=== PATIENT | female | born 1965 | race Caucasian/White ===

== ENCOUNTER → 2022-07-06 17:44 | Outpatient (BNVA) | payer BC, SELFPAY | PROVIDERS: PCP Family Medicine; Visit Provider Nurse Practitioner | DX: J02.9 Acute pharyngitis, unspecified (principal); J30.9 Allergic rhinitis, unspecified | CPT/HCPCS: 87071; 87880 ==

== ENCOUNTER 2023-02-14 11:15 | Emergency (ER) | payer BC, SELFPAY ==
[2023-02-14 11:17] VITALS: BP 142/96; PULSE 86; RESP 15; TEMP 36.9; O2SAT 100; BMI 25.2
--- NOTE | 2023-02-14 11:26 | CT_ITS ---
WS: [id number] CT HEAD NONCONTRAST HISTORY: Headache and jaw pain. Dizziness TECHNIQUE: Contiguous axial imaging performed through the brain in 2.5 mm imaging. Bone and soft tiss ue windows. Sagittal and coronal reformats reviewed. All CT scans at [facility] use at least one of these dose optimization techniques: automated exposure control; mA and/or kV adjustment per pa tient size (includes targeted exams where dose is matched to clinical indication); or iterative recon struction. DLP: 1032.09 mGy.cm COMPARISON: None available. No acute intracranial hemorrhage, midline shift or mass effect. Mild volume loss and cerebral atrophy involving the frontal lobes. No prior infarcts. No significant white matter disease. Ventricles: Normal size with no hydrocephalus. No inferior displacement of the cerebellar tonsils. Paranasal sinuses: As visualized are clear. Mastoid air cells: Well pneumatized. Calvarium and scalp: Skull is intact with no soft tissue edema or swelling. IMPRESSION: 1. No acute intracranial hemorrhage or edema. 2. Mild bilateral frontal lobe atrophy.
--- NOTE | 2023-02-14 11:26 | XR_ITS ---
WS: [id number] Exam: XR chest 1V portable [id number] Date/Time of Exam: 02/14/2023 11:27 AM Reason For Exam: cp No priors. Findings: The lungs are clear and fully expanded. Costophrenic angles are sharp. No infiltrates. Bronchovascula r relief appears normal. Cardiac silhouette is unremarkable. Bony elements are intact. IMPRESSION: Unremarkable chest radiograph.
[2023-02-14 11:38] LABS: Basophils # 0.1 10^3/uL (0.0-0.1); Basophils % 0.6 %; Eosinophils # 0.1 10^3/uL (0.0-0.8); Hematocrit 38.7 % (36-47); Lymphocytes # 2.7 10^3/uL (0.8-4.8); Lymphocytes % 32.6 %; Mean Corpuscular HGB Conc 34.6 g/dL (30-55); Mean Corpuscular Hemoglobin 31.8 pg (27-33); Mean Corpuscular Volume 91.9 fl (85-98); Monocytes % 11.8 %; Neutrophils # 4.45 10^3/uL (1.8-7.7); Neutrophils % 53.8 %; Nucleated Red Blood Cells % 0 %; Platelet Count 315 10^3/cmm (157-399); Red Blood Count 4.21 10^6/uL (3.85-5.65); Red Cell Distribution Width 12.8 % (12.1-15.1); White Blood Count 8.28 10^3/uL (3.29-11.43)
--- NOTE | 2023-02-14 11:40 | W.ED.DIZZY ---
HPI - Dizziness General: Chief Complaint: Dizziness Stated Complaint: dizziness Time Seen by Provider: 02/14/23 11:16 Source: patient and EMS Mode of arrival: EMS Limitations: no limitations History of Present Illness: HPI Narrative: 57-year-old female states that today started having some chest pain states she also had a headache and neck pain states it was a squeezing-like sensation she had some numbness to her extremities as well. States she has been having the symptoms off and on for the last months received aspirin Zofran in route states her symptoms have since resolved. She denies any fevers denies any severe headaches. Associated symptoms: Reports chest pain and headache(s); Denies chills, nausea or vomiting Associated neuro symptoms: Reports numbness in extremities Review of Systems Const: Denies: fever(s) or chills Eyes: Denies: blurry vision or eye discomfort ENMT: Denies: throat pain or dental pain Card: Reports: chest pain Resp: Denies: dyspnea GI: Denies: abdominal pain, nausea, vomiting or diarrhea Musc: Denies: neck pain or back pain Skin/Breast: Denies: rash Neuro: Reports: headache(s) and numbness in extremities Psych: Denies: depression PFSH ED PFSH: Medical History Ankylosing spondylitis She is going to follow with rheum in [place]. Asthma Benign essential HTN Glaucoma Histoplasmosis Seasonal allergies TIA (transient ischemic attack) Surgical History H/O abdominoplasty H/O shoulder surgery scope of right shoulder History of breast augmentation History of tonsillectomy Family History Mother Hypertension Rheumatoid arthritis Chronic kidney disease (CKD) COPD (chronic obstructive pulmonary disease) Father Diverticulitis Social History Smoking and tobacco/nicotine status: former use of tobacco/nicotine Second hand smoke exposure: Yes Alcohol intake: current Alcohol intake frequency: few times a week Alcohol type: beer, wine and hard liquor Substance/Drug Use: never Adopted: No Caregiver/support person: No Lives independently: Yes Household members: spouse Housing: Manufactured/Mobile home Marital status: Number of children: 2 Highest education level completed: Some College, No Degree service: Yes status: Medically Discharged/Retired branch: [employer] Assignments: [facility] Known or Potential Exposure: None Current occupational status: employed Current occupation: Adminstrative assistant mechanic Current occupational exposures/hazards: No Pets and animals: No Sexually active: Yes Do you think of yourself as: Straight/Heterosexual Current gender identity: Female Physical Exam Const: COMMON NORMALS: no acute distress, patient oriented x3 and healthy appearing HENMT: COMMON NORMALS: normocephalic and atraumatic HEAD & SCALP: normocephalic and atraumatic Eye: COMMON NORMALS: Equal, round and reactive pupils present and EOMs intact bilaterally PUPIL: Yes Equal, round and reactive pupils present Neck/C-Spine: COMMON NORMALS: full ROM and supple Chest: COMMONS NORMALS: normal inspection of the chest and normal palpation of entire chest wall Resp: COMMON NORMALS: normal respiratory effort, No retractions, No use of accessory muscles and clear to auscultation bilaterally AUSCULTATION: clear to auscultation bilaterally Cardio: COMMON NORMALS: regular rate, regular rhythm and No murmurs present (Cardio) RATE: regular rate RHYTHM: regular rhythm GI: COMMON NORMALS: Normal to inspection, nondistended, normoactive bowel sounds present, Soft to palpation, non-tender and no masses PALPATION: Yes Soft to palpation Extremity: COMMON NORMALS: normal to inspection and full ROM Neuro: COMMON NORMALS: patient oriented x3, moves all extremities and no focal motor deficits SPEECH: speech normal GAIT: Yes Normal gait present MOTOR EXAM: 5/5 motor strength present throughout Psych: COMMON NORMALS: mental status grossly normal, Normal thought process present and cooperative THOUGHT PROCESS: Normal thought process present Skin: COMMON NORMALS: no rashes or lesions noted and no wounds GENERAL SKIN EXAM: no rashes or lesions noted Course Vital Signs: Vital signs: Vital Signs Temperature 98.4 F 02/14/23 11:17 Pulse Rate 86 02/14/23 11:17 Respiratory Rate 15 02/14/23 11:17 Blood Pressure 144/77 02/14/23 13:56 Pulse Oximetry 99 02/14/23 11:57 Oxygen Delivery Me thod Room Air 02/14/23 11:17 MDM - Dizziness Medical Decision Making Patient presents here with chest pain along with some headache is been on for weeks head CT blood work here is normal troponins are normal she feels improved she is no signs of acute coronary syndrome she is stable for discharge she is to follow-up with PCP and return if worsening she understands agrees to plan. Medical Records I reviewed the patient's medical records. Lab Data I reviewed the patient's lab results. 02/14/23 11:04 02/14/23 11:04 Laboratory Results WBC 8.28 10^3/uL (3.29-11.43) 02/14/23 11:04 RBC 4.21 10^6/uL (3.85-5.65) 02/14/23 11:04 Hgb 13.40 g/dL (11.27-16.99) 02/14/23 11:04 Hct 38.7 % (36-47) 02/14/23 11:04 MCV 91.9 fl (85-98) 02/14/23 11:04 MCH 31.8 pg (27-33) 02/14/23 11:04 MCHC 34.6 g/dL (30-55) 02/14/23 11:04 RDW 12.8 % (12.1-15.1) 02/14/23 11:04 Plt Count 315 10^3/cmm (157-399) 02/14/23 11:04 MPV 10.0 fL (7.4-10.4) 02/14/23 11:04 Neut % (Auto) 53.8 % 02/14/23 11:04 Lymph % (Auto) 32.6 % 02/14/23 11:04 [place] % (Auto) 11.8 % 02/14/23 11:04 Eos % (Auto) 1.0 % 02/14/23 11:04 Baso % (Auto) 0.6 % 02/14/23 11:04 Neut # (Auto) 4.45 10^3/uL (1.8-7.7) 02/14/23 11:04 Lymph # (Auto) 2.7 10^3/uL (0.8-4.8) 02/14/23 11:04 [place] # (Auto) 1.0 10^3/uL (0.2-0.9) H 02/14/23 11:04 Eos # (Auto) 0.1 10^3/uL (0.0-0.8) 02/14/23 11:04 Baso # (Auto) 0.1 10^3/uL (0.0-0.1) 02/14/23 11:04 Nucleated RBC % (auto) 0 % 02/14/23 11:04 Nucleated RBCs # 0.0 /100WBC 02/14/23 11:04 Sodium 137 mmol/L (136-145) 02/14/23 11:04 Potassium 4.1 mmol/L (3.5-5.1) 02/14/23 11:04 Chloride 99 mmol/L (98-107) 02/14/23 11:04 Carbon Dioxide 27 mmol/L (22-29) 02/14/23 11:04 Anion Gap 15.1 (5-19) 02/14/23 11:04 BUN 14 mg/dL (6-20) 02/14/23 11:04 Creatinine 0.7 mg/dL (0.5-0.9) 02/14/23 11:04 GFR Calculation 86.9 mL/min (90-130) L 02/14/23 11:04 Glucose 86 mg/dL (65-115) 02/14/23 11:04 Calculated Osmolality 284 mOsm/kg (285-295) L 02/14/23 11:04 Calcium 10.6 mg/dL (8.5-10.5) H 02/14/23 11:04 Total Bilirubin 0.6 mg/dL (0.15-1.2) 02/14/23 11:04 AST 29 U/L (0-32) 02/14/23 11:04 ALT 14 U/L (0-33) 02/14/23 11:04 Alkaline Phosphatase 39 U/L (35-105) 02/14/23 11:04 Troponin T Baseline < 6 ng/L (0-10) 02/14/23 11:04 Troponin T 120 Minute 11.30 ng/L (0-10) H 02/14/23 13:08 Delta Troponin T 5.12850 ABS# (0-10) 02/14/23 13:08 Total Protein 7.1 g/dL (6.6-8.7) 02/14/23 11:04 Albumin 5.0 g/dL (3.5-5.2) 02/14/23 11:04 Globulin 2.1 g/dL (1.3-4.6) 02/14/23 11:04 All radiology interpretation(s) finalized by discharge EKG Data EKG 1: I personally reviewed and interpreted this EKG as follows: EKG interpretation date: 02/14/23 EKG interpretation time: 11:46 Interpretation: nsr hr [address] or t wave abnormalities qrs 105 qtc 445 EKG 2: I personally reviewed and interpreted this EKG as follows: EKG interpretation date: 02/14/23 EKG interpretation time: 13:26 Interpretation: sinus ling hr [address] or t wave abnormalities qrs 122 qtc 460 Discharge Plan Discharge Patient Disposition: Home Clinical Impression: Chest pain, Headache Condition: Stable Prescriptions: No Action brimonidine 0.1 % drops 1 drp ophthalmic (eye) DAILY albuterol sulfate 2.5 mg /3 mL (0.083 %) solution for nebulization 2.5 mg inhalation Q4H PRN (Reason: Shortness Of Breath) epinephrine 0.1 mg/0.1 mL auto-injector 0.1 ml IM ONCE PRN (Reason: hypersensitivity reaction) cetirizine [Zyrtec] 10 mg tablet 10 mg PO DAILY PRN (Reason: Allergic Symptoms) albuterol sulfate [ProAir HFA] 90 mcg/actuation HFA aerosol inhaler 2 puff inhalation Q6H PRN (Reason: shortness of breath or wheezing) Qty: 8.5 0RF hydroxychloroquine [Plaquenil] 200 mg tablet 400 mg PO DAILY biotin 10 mg Tablet 10 mg PO QAM Vitamin C 1,000 mg Tablet 1,000 mg PO QAM evening primrose oil 500 mg Capsule 500 mg PO QAM Rx Instructions: give with meal/snack azathioprine 50 mg tablet 100 mg PO DAILY Ginkoba 40 mg Tablet 40 mg PO QAM Rx Instructions: give with meal/snack diclofenac sodium 75 mg tablet,delayed release (DR/EC) 75 mg PO BID losartan-hydrochlorothiazide 50-12.5 mg tablet 1 tab PO QAM Juice Plus Liquid 1 ea PO DAILY alpha lipoic acid 50 mg Tablet 50 mg PO QPM Centrum 18-400 mg-mcg Tablet 1 tab PO QPM Vitamin D3 125 mcg (5,000 unit) Tablet 125 mcg PO QPM Krill Oil (Morton 3 and 6) 1,500-165-67.5 mg Capsule 1 cap PO QPM Cosentyx Pen 150 mg/mL Pen Injector See Rx Instructions .ROUTE .COMPLEX Rx Instructions: 150 mg subcutaneously every 4 weeks on the Tuesday potassium citrate 99 mg Capsule 99 mg PO QAM cat's claw (Uncaria tomentosa) 500 mg Capsule 500 mg PO QAM Discharge Orders: Discharge ED (Routine); Ordered 02/14/23 Ordered By: Delano Norris Referrals: Ronnie Olvera [Primary Care Provider] - 1-3 days Discharge Diet: Advance as tolerated Discharge Activity: Resume usual activity Patient Instructions: Chest Pain (ED), General Headache (ED) Stand Alone Forms: Work/School Release Print Language: Lebanese Coding Level of Care Code ED Feather Stitcher for Carrol Yun
--- NOTE | 2023-02-14 11:46 | ECG_ITS ---
[facility] Test Date: 2023-02-14 Pat Name: Milagro Meier Department: Room: Gender: Female Product Manager: : 1965 Requested By: Delano Norris Order Number: [id number] Radha MD: Jenn Tucker M.D. Measurements Intervals [place] Rate: 60 P: 48 SD: 146 QRS: 56 QRSD: 105 T: 56 QT: 445 QTc: 445 Interpretive Statements SINUS RHYTHM No previous ECG available for comparison Electronically Signed On 02-14-2023 12:41:58 CDT by Jenn Tucker M.D. [id number]
--- NOTE | 2023-02-14 11:54 | PC.NURSE ---
report rec'd from ZAHIDA Estrada
[2023-02-14 11:56] LABS: Troponin(5th) Baseline < 6 ng/L (0-10)
[2023-02-14 11:57] VITALS: BP 142/96; O2SAT 99
[2023-02-14 12:00] LABS: Alanine Aminotransferase 14 U/L (0-33); Alkaline Phosphatase 39 U/L (35-105); Anion Gap 15.1 (5-19); Aspartate Amino Transferase 29 U/L (0-32); Blood Urea Nitrogen 14 mg/dL (6-20); Calcium 10.6 mg/dL (8.5-10.5); Carbon Dioxide 27 mmol/L (22-29); Chloride 99 mmol/L (98-107); Globulin 2.1 g/dL (1.3-4.6); Glomerular Filtration Rate 86.9 mL/min (90-130); Glucose 86 mg/dL (65-115); Osmolality Calculated 284 mOsm/kg (285-295); Potassium 4.1 mmol/L (3.5-5.1); Sodium 137 mmol/L (136-145); Total Bilirubin 0.6 mg/dL (0.15-1.2); Total Protein 7.1 g/dL (6.6-8.7)
[2023-02-14] MEDS: ketorolac 30 mg/mL INJ 15 MG IVP (12:10)
--- NOTE | 2023-02-14 13:26 | ECG_ITS ---
[facility] Test Date: 2023-02-14 Pat Name: Milagro Meier Department: Room: Gender: Female Correctional Facility Psychiatrist: : 1965 Requested By: Delano Norris Order Number: [id number] Radha MD: Jenn Tucker M.D. Measurements Intervals [place] Rate: 58 P: 42 FL: 140 QRS: 55 QRSD: 122 T: 59 QT: 462 QTc: 457 Interpretive Statements SINUS BRADYCARDIA MODERATE INTRAVENTRICULAR CONDUCTION DELAY [110+ ms QRS DURATION] Compared to ECG 02/14/2023 11:46:23 Intraventricular conduction delay now present Sinus rhythm no longer present Electronically Signed On 02-14-2023 17:45:29 CDT by Jenn Tucker M.D. [id number]
[2023-02-14 13:56] VITALS: BP 144/77
== END 2023-02-14 13:56 | disposition home or self-care (01) ==
PROVIDERS: Emergency Provider Emergency Medicine; PCP Family Medicine
DX: R07.9 Chest pain, unspecified (principal); R51.9 Headache, unspecified; Z87.891 Personal history of nicotine dependence; I10 Essential (primary) hypertension; Z86.73 Personal history of transient ischemic attack (TIA), and cerebral infarction without residual deficits
CPT/HCPCS: 36415; 70450; 71045; 80053; 84484; 85025; 93005; 96374; 99285; J1885

== ENCOUNTER 2023-03-09 11:55 | Outpatient (CLI) | payer BC, SELFPAY ==
--- NOTE | 2023-03-09 | ECG_ITS ---
[facility] Test Date: 2023-03-09 Pat Name: Milagro Meier Department: Room: Gender: Female Binder Sorter: Marisa Atwood : 1965 Requested By: Magali Mora Order Number: [id number] Radha MD: Jenn Tucker M.D. Interpretive Statements NAME OF STUDY: TREADMILL STRESS TEST INDICATION: Chest Pain Baseline blood pressure of 141/64 mm Hg, heart rate of 67 beats per minute and oxygen saturation of 98%. EKG showed sinus rhythm, normal axis with normal ST-Ts. ??? The patient exercised for 9 minutes 31 seconds on a standard Luis protocol. Patient attained a maximum heart rate of 156 beats per minute(94% of the maximum predicted heart rate) with a blood pressure at the peak exercise of 195/70 mm Hg. The EKG at the peak exercise revealed 2 mm horizontal to upsloping ST depression in lead II, 3, aVF V4 to V6. Patient did not have any chest pain or any significant arrhythmis with the exercise??? During the recovery phase, there were no new changes. ??? Blood pressure at the end of the recovery phase was 154/85 mm Hg with a heart rate of 83 beats per minute and oxygen saturation of 98%. ??? CONCLUSION: 1. Positive EKG response to treadmill exercise with 2 mm horizontal to upsloping ST depression in inferolateral leads. 2. No exercise-induced chest pain or cardiac arrhythmia. 3. Excellent exercise tolerance, attained a maximum of 13.5 METs. 4. Baseline normal blood pressure with normal response to exercise. Electronically Signed On 03-09-2023 17:01:22 FIELD LABORATORY OPERATOR by Jenn Tucker M.D. [id number]
[2023-03-09 12:18] VITALS: BMI 25.7
[2023-03-09 12:54] VITALS: BP 154/85; PULSE 82
== END 2023-03-09 11:56 | disposition home or self-care (01) ==
LOC: CDL 11:55
PROVIDERS: PCP Family Medicine; Visit Provider Registered Nurse
DX: R07.9 Chest pain, unspecified (principal)
CPT/HCPCS: 93017